=== PATIENT | female | born 1955 | race Caucasian/White ===

== ENCOUNTER → 2017-05-13 | Outpatient (CLI) | payer OTHER ==
--- NOTE | 2017-05-13 15:10 | US ---
EXAMINATION TYPE: US pelvic complete DATE OF EXAM: 05/13/2017 COMPARISON: NONE CLINICAL HISTORY: R10.2 Pelvic Pain. Patient stated upper right pelvic pain > upper left pelvic pain; ; post menopausal TECHNIQUE: Transabdominal (TA) Date of LMP: approximately age 54 EXAM MEASUREMENTS: Uterus: 6.8 x 4.2 x 2.6 cm Endometrial Stripe: 0.4 cm Right Ovary: 1.8 x 1.5 x 0.8 cm Left Ovary: 1.8 x 1.2 x 1.6 cm 1. Uterus: Anteverted; small Nabothian Cyst in CX = 0.5 x 0.6 x 0.5cm 2. Endometrium: wnl postmenopausal 3. Right Ovary: wnl; bowel is imaged surrounding rt ovary 4. Left Ovary: wnl Spectral, color and waveform doppler imaging shows arterial and venous flow within the ovaries; the re is no evidence for ovarian torsion. 5. Bilateral Adnexa: wnl 6. Posterior cul-de-sac: wnl IMPRESSION: 1. Unremarkable appearance of the ovaries and uterus. 2. Endometrial thickness is within normal limits for a postmenopausal female. 3. Incidentally noted small nabothian cervical cyst.
== END ==
LOC: RADUSWWP 13:31
PROVIDERS: ATTEND Obstetrics & Gynecology
DX: N88.8 Other specified noninflammatory disorders of cervix uteri (principal)
CPT/HCPCS: 76856

== ENCOUNTER → 2018-04-15 | Outpatient (CLI) | payer OTHER ==
--- NOTE | 2018-04-15 23:42 | CT ---
EXAMINATION TYPE: CT abdomen pelvis wo con DATE OF EXAM: 04/15/2018 HISTORY: right sided flank pain CT DLP: 793 mGycm. Automated Exposure Control for Dose Reduction was Utilized. TECHNIQUE: CT scan of the abdomen and pelvis is performed without oral or IV contrast. COMPARISON: NONE FINDINGS: Within the limitations of a non-contrast study, the following observations are made. LUNG BASES: Fairly dense fibroglandular tissue is seen in visualized portion of both breasts. Coronar y artery calcification is noted which is noted marker for coronary artery disease. This focal linear scarring anteriorly in the right lung base near axial image 5 and laterally in the right middle lobe near axial image 15. LIVER/GB: Gallbladder is not visualized and presumed surgically absent. PANCREAS: There is 1.2 cm oval low dense lesion in the region of the mid pancreatic body coronal imag e 34 without suspicious ductal dilatation near axial image 43 that warrants follow-up. There is addit ional 1.4 x 1.0 cm low dense lesion in the inferior pancreatic head axial image 54 correlating with c oronal image 34. SPLEEN: No significant abnormality is seen. ADRENALS: Slight low dense thickening to left adrenal gland favors benign hyperplasia axial image 43. KIDNEYS: There are 2-3 small calculi left kidney measuring 2 mm or smaller in size. No right-sided re nal calculi are seen. No hydronephrosis or obstructing ureteral calculi are clearly seen bilaterally. No intraluminal calculi are seen in bladder. BOWEL: Evaluation of bowel is suboptimal secondary to lack of enteric contrast and patient having lit tle intra-abdominal fat. Normal-appearing appendix is seen from cecum. There is no suspicious small o r large bowel dilatation. There is fairly moderate to severe diffuse fecal prominence throughout the colon however noted. GENITAL ORGANS: There is retroflexed but anteverted uterus projecting to the left of midline. LYMPH NODES: No greater than 1cm abdominal or pelvic lymph nodes are appreciated. OSSEOUS STRUCTURES: There is fairly moderate axial joint space loss in both hips. OTHER: No significant additional abnormality is seen. IMPRESSION: 1. Small left-sided renal calculi. No hydronephrosis or obstructing renal calculi clearly seen bilate rally. No definitive right-sided renal calculi seen. 2. No bowel obstruction is present. There is however fairly moderate to severe diffuse colonic fecal stasis noted. 3. Nonspecific low dense pancreatic lesions, cannot exclude solid or cystic pancreatic masses. Furthe r investigation with pancreatic protocol contrast-enhanced CT or MRI is advised to further evaluate a nd characterize.
== END | disposition home or self-care (01) ==
LOC: RADCTMAIN 18:19
PROVIDERS: ATTEND Surgery
DX: N20.0 Calculus of kidney (principal); K56.41 Fecal impaction
CPT/HCPCS: 74176

== ENCOUNTER → 2018-06-14 | Outpatient (CLI) | payer OTHER ==
--- NOTE | 2018-06-14 11:38 | US ---
EXAMINATION TYPE: US abdomen complete DATE OF EXAM: 06/14/2018 COMPARISON: CT 04/15/2018 CLINICAL HISTORY: 62-year-old female N18.3 Chronic Kidney Stage 3. TECHNIQUE: Multiple sonographic images of the abdomen are obtained. FINDINGS: EXAM MEASUREMENTS: Liver Length: 10.8 cm Gallbladder Wall: 0.3 cm CBD: 0.5 cm Spleen: 9.3 cm Right Kidney: 9.2 x 4.3 x 4.7 cm Left Kidney: 9.2 x 5.0 x 6.0 cm Digital Music Instructor notes: Technically difficult study due to overlying bowel gas. Pancreas: not well visualized due to midline bowel gas Liver: wnl Gallbladder: No stones seen Evidence for sonographic Mtz's sign: No CBD: wnl Spleen: wnl Right Kidney: No hydronephrosis. Left Kidney: No hydronephrosis. Upper IVC: wnl Abd Aorta: wnl IMPRESSION: Suboptimal visualization of the pancreas. Otherwise, unremarkable sonographic examination of the abdo men.
== END ==
LOC: RADUSWWP 07:46
PROVIDERS: ATTEND Internal Medicine Nephrology
DX: N18.3 Chronic kidney disease, stage 3 (moderate) (principal)
CPT/HCPCS: 76700

== ENCOUNTER → 2020-11-16 | Outpatient (CLI) | payer OTHER ==
[2020-11-16 13:33] LABS: HCT 35.1 % (34.0-46.0); HGB 12.2 gm/dL (11.4-16.0); MCHC 34.6 g/dL (31.0-37.0); MCV 95.4 fL (80.0-100.0); Mean Platelet Volume 6.7; Platelet Count 289 k/uL (150-450); RBC 3.69 m/uL (3.80-5.40); RDW 12.2 % (11.5-15.5); WBC 7.1 k/uL (3.8-10.6)
[2020-11-16 13:52] LABS: Albumin 3.6 g/dL (3.5-5.0); Calcium 8.9 mg/dL (8.4-10.2); Potassium 4.4 mmol/L (3.5-5.1); Total Bilirubin 0.4 mg/dL (0.2-1.3); Total Protein 6.8 g/dL (6.3-8.2)
[2020-11-16 14:21] LABS: Basophils # (M) 0.07 k/uL (0-0.2); Lymphocytes # (M) 1.78 k/uL (1.0-4.8); Monocytes # (M) 0.28 k/uL (0-1.0); Neutrophils # (M) 4.97 k/uL (1.3-7.7); Neutrophils % (M) 70 %; Nucleated Red Blood Cells 0 /100 WBC (0-0); Total Cells Counted 100
--- NOTE | 2020-11-16 14:53 | CT ---
EXAMINATION TYPE: CT abdomen pelvis w con DATE OF EXAM: 11/16/2020 COMPARISON: 04/15/2018 HISTORY: weight loss, diarrhea CT DLP: 828 mGycm CONTRAST: CT scan of the abdomen and pelvis is performed without Oral Contrast and with IV Contrast, patient in jected with 100 mL of Isovue 370. FINDINGS: LUNG BASES-: No visible nodule. No infiltrate. LIVER/GB: The gallbladder is not clearly visualized. No space occupying hepatic lesion. Biliary tree is of normal caliber. PANCREAS: No inflammation. No distinct mass. SPLEEN: No splenic enlargement. No lesion seen. ADRENALS: No nodule. No thickening. KIDNEYS/BLADDER: No hydronephrosis. No nephrolithiasis. No distinct renal mass. Urinary bladder g rossly unremarkable. BOWEL: There is moderate fluid distention of the stomach and large bowel and to a lesser extent the s mall bowel. The findings may reflect gastroenterocolitis. No evidence for free air or active inflamma tory process. The appendix is visualized and is normal.. GENITAL ORGANS: No gross abnormality. LYMPH NODES: No greater than 1cm abdominal or pelvic lymph nodes are appreciated. AORTA: No significant abnormality. OSSEOUS STRUCTURES: No significant abnormality is seen. OTHER: No significant additional abnormality is seen. IMPRESSION: 1. There is moderate fluid distention of the stomach and large bowel and to a lesser extent the small bowel. The findings may reflect gastroenterocolitis.
== END | disposition home or self-care (01) ==
LOC: RADCTMAIN 12:43
PROVIDERS: ATTEND Family Medicine
DX: R14.0 Abdominal distension (gaseous) (principal)
CPT/HCPCS: 80053; 82150; 83690; 85025; 74177; 36415; Q9967

== ENCOUNTER → 2021-03-19 | Outpatient (CLI) | payer OTHER ==
[2021-03-19 19:18] LABS: Hemoglobin A1C 5.2 % (4.0-6.0)
[2021-03-20 05:29] LABS: C-Peptide <0.05 ng/mL (0.81-3.85)
[2021-03-20 06:17] LABS: ALT 22 U/L (8-44); AST 32 U/L (13-35); African American GFR (CKD) 69.4 (60.0-200.0); Albumin/Globulin Ratio 1.59 (1.60-3.17); Alkaline Phosphatase 88 U/L (41-126); Calcium 9.2 mg/dL (8.7-10.3); Carbon Dioxide 28.8 mmol/L (21.6-31.8); Chloride 103 mmol/L (96-109); Globulin 2.7 g/dL (1.6-3.3); Glucose 79 mg/dL (70-110); Non-African American GFR(CKD) 59.9 (60.0-200.0); Potassium 4.6 mmol/L (3.5-5.5); Sodium 139 mmol/L (135-145); Total Bilirubin 0.4 mg/dL (0.2-1.2)
== END | disposition home or self-care (01) ==
LOC: LABWHC1 11:29
PROVIDERS: ATTEND Internal Medicine Endocrinology, Diabetes & Metabolism
DX: E10.65 Type 1 diabetes mellitus with hyperglycemia (principal)
CPT/HCPCS: 36415; 80053; 83036; 84681